=== PATIENT | female | born 1975 | race Caucasian/White ===

== ENCOUNTER → 2016-09-04 | Outpatient (CLI) | payer OTHER | LOC: MAMMO 11:24 | DX: Z12.31 Encounter for screening mammogram for malignant neoplasm of breast (principal); R92.2 Inconclusive mammogram | CPT/HCPCS: G0202 ==

== ENCOUNTER → 2016-09-06 | Outpatient (CLI) | payer OTHER | LOC: MAMMO 14:33 | DX: R92.2 Inconclusive mammogram (principal) ==

== ENCOUNTER → 2018-01-01 | Outpatient (CLI) | payer OTHER | LOC: MAMMO 09:02 | DX: Z12.31 Encounter for screening mammogram for malignant neoplasm of breast (principal) ==